=== PATIENT | female | born 1995 | race American Indian/Alaskan Native ===

== ENCOUNTER 2020-10-16 08:58 | Emergency (ER) | payer SELFPAY ==
[2020-10-16 09:39] VITALS: BP 101/46
--- NOTE | 2020-10-16 10:33 | Emergency Department Report ---
ED Back Pain/Injury HPI - General Chief Complaint: Back Pain/Injury Stated Complaint: BACK NECK PAINS Time Seen by Provider: 10/16/20 10:24 Source: patient Limitations: No Limitations - History of Present Illness Initial Comments: Patient is a 24-year-old female presents emergency room with complaints of upper back pain that radiates to her neck that began 2 days ago. She states 2 days ago she was at work and lifting a heavy box when she began to feel the pain. She denies any fall or specific injury. She denies any fever, nausea, vomiting, diarrhea, urinary symptoms, numbness, weakness, bowel or bladder incontinence. No past medical history. No allergies to medications. Last menstrual cycle last month, she denies possibility of . - Related Data Previous Rx's Medication Instructions Recorded Last Taken Type Menthol/Camphor [[place] 1 applicatio TP BID #18 oint...g. 10/16/20 Unknown Rx Ointment] Naproxen [EC-Naprosyn] 500 mg PO BID PRN #14 tablet. 10/16/20 Unknown Rx Allergies Allergy/AdvReac Type Severity Reaction Status Date / Time No Known Allergies Allergy Unverified 10/16/20 09:38 ED Review of Systems ROS: Stated complaint: BACK NECK PAINS Other details as noted in HPI Comment: All other systems reviewed and negative ED Past Medical Hx - Past Medical History Previous Medical History?: No - Surgical History Past Surgical History?: No - Medications Home Medications: Home Medications Medication Instructions Recorded Confirmed Last Taken Type Menthol/Camphor [[place] 1 applicatio TP BID #18 oint...g. 10/16/20 Unknown Rx Ointment] Naproxen [EC-Naprosyn] 500 mg PO BID PRN #14 tablet. 10/16/20 Unknown Rx ED Physical Exam - General Limitations: No Limitations General appearance: alert, in no apparent distress - Head Head exam: Present: atraumatic, normocephalic - Eye Eye exam: Present: normal appearance - ENT ENT exam: Present: mucous membranes moist - Neck Neck exam: Present: normal inspection, full ROM. Absent: tenderness, meningismus - Respiratory Respiratory exam: Present: normal lung sounds bilaterally. Absent: respiratory distress, wheezes, rales, rhonchi, stridor, chest wall tenderness, accessory muscle use, decreased breath sounds, prolonged expiratory - Cardiovascular Cardiovascular Exam: Present: regular rate, normal rhythm, normal heart sounds. Absent: systolic murmur, diastolic murmur, rubs, gallop - Extremities Exam Extremities exam: Present: other (mild bilateral trapezius ttp, no bony ttp of the BUE, no crepitus, no deformity, FROM of the BUE, neurovascularly intact) - Back Exam Back exam: Present: normal inspection, full ROM. Absent: paraspinal tenderness, vertebral tenderness - Neurological Exam Neurological exam: Present: alert, oriented X3, CN II-XII intact, normal gait. Absent: motor sensory deficit - Psychiatric Psychiatric exam: Present: normal affect, normal mood - Skin Skin exam: Present: warm, dry, intact ED Course Vital Signs 10/16/20 09:33 Temperature 98.5 F Pulse Rate 59 L Respiratory 18 Rate Blood Pressure 101/46 O2 Sat by Pulse 98 Oximetry ED Medical Decision Making - Medical Decision Making Patient is a 24-year-old female presents emergency room with complaints of upper back pain that radiates to her neck that began 2 days ago. She states 2 days ago she was at work and lifting a heavy box when she began to feel the pain. She denies any fall or specific injury. She denies any fever, nausea, vomiting, diarrhea, urinary symptoms, numbness, weakness, bowel or bladder incontinence. No past medical history. No allergies to medications. Last menstrual cycle last month, she denies possibility of . Vitals are stable. On exam:mild bilateral trapezius ttp, no bony ttp of the BUE, no crepitus, no deformity, FROM of the BUE, neurovascularly intact, no focal neuro deficits. No midline or paraspinal C-spine, T-spine, L-spine tenderness palpation, no step- offs, no deformities. Nexus criteria negative, C-spine can be cleared clinically. Examination appears most consistent with muscle strain. Patient has had no significant trauma. Patient given prescription for [place] balm ointment and naproxen. Advised patient Please use medication as prescribed. May use ice pack, heating pad, rest, epsom salt bath. Follow-up with a primary care doctor. Return the emergency room for any new or worsening symptoms. Critical care attestation.: If time is entered above; I have spent that time in minutes in the direct care of this critically ill patient, excluding procedure time. ED Disposition Clinical Impression: Trapezius muscle strain Qualifiers: Encounter type: initial encounter Laterality: unspecified laterality Qualified Code(s): S46.819A - Strain of other muscles, fascia and tendons at shoulder and upper arm level, unspecified arm, initial encounter Disposition: TO HOME OR SELFCARE Is pt being admited?: No Does the pt Need Aspirin: No Condition: Stable Instructions: Muscle Strain, [id number] Additional Instructions: Please use medication as prescribed. May use ice pack, heating pad, rest, epsom salt bath. Follow-up with a primary care doctor. Return the emergency room for any new or worsening symptoms. Prescriptions: Naproxen [EC-Naprosyn] 500 mg PO BID PRN #14 tablet.dr PRN Reason: pain Menthol/Camphor [[place] Ointment] 1 applicatio TP BID #18 oint...g. Referrals: AAYUSH LIVINGSTON MD [Staff Physician] - 2-3 Days [facility] [Provider Group] - 2-3 Days Forms: Work/School Release Form(ED) Time of Disposition: 10:32 Print Language: BRITISH
== END 2020-10-16 10:49 | disposition home or self-care (01) ==
LOC: ED 08:58
DX: S46.912A Strain of unspecified muscle, fascia and tendon at shoulder and upper arm level, left arm, initial encounter (principal); S46.911A Strain of unspecified muscle, fascia and tendon at shoulder and upper arm level, right arm, initial encounter; Z79.899 Other long term (current) drug therapy; X50.0XXA Overexertion from strenuous movement or load, initial encounter; Y93.89 Activity, other specified; Y92.89 Other specified places as the place of occurrence of the external cause; Y99.8 Other external cause status
CPT/HCPCS: 99281

== ENCOUNTER 2020-10-30 19:33 | Emergency (ER) | payer SELFPAY ==
--- NOTE | 2020-10-30 23:12 | Emergency Department Report ---
ED ENT HPI - General Chief complaint: Sore Throat Stated complaint: SORE THROAT Time Seen by Provider: 10/30/20 22:33 Source: patient Mode of arrival: Ambulatory Limitations: No Limitations - History of Present Illness MD complaint: sore throat -: Gradual, days(s) (3) Location: throat Severity: moderate Quality: aching, dull Consistency: constant Worsens with: swallowing, eating - Related Data Previous Rx's Medication Instructions Recorded Last Taken Type Menthol/Camphor [[place] 1 applicatio TP BID #18 oint...g. 10/16/20 Unknown Rx Ointment] Naproxen [EC-Naprosyn] 500 mg PO BID PRN #14 tablet. 10/16/20 Unknown Rx Chlorhexidine Mouthwash [Peridex] 15 ml MM BID #1 bottle 10/30/20 Unknown Rx Lidocaine Viscous 2% 5 ml MM Q3H PRN #120 udc 10/30/20 Unknown Rx Allergies Allergy/AdvReac Type Severity Reaction Status Date / Time No Known Allergies Allergy Unverified 10/16/20 09:38 ED Dental HPI - General Chief complaint: Sore Throat Stated complaint: SORE THROAT Time Seen by Provider: 10/30/20 22:33 Source: patient Mode of arrival: Ambulatory Limitations: No Limitations - History of Present Illness Initial comments: 24-year-old asthmatic female with asthma department complaining of a 1 to 2-day history of sore throat which worsens with eating and drinking. No fever, chills, sweats. No dysphagia. No nausea, no vomiting, no hemoptysis no hematemesis hematochezia no abdominal pain no rashes. This patient states that she seeks a work note as well MD complaint: sore throat -: Gradual - Related Data Previous Rx's Medication Instructions Recorded Last Taken Type Menthol/Camphor [[place] 1 applicatio TP BID #18 oint...g. 10/16/20 Unknown Rx Ointment] Naproxen [EC-Naprosyn] 500 mg PO BID PRN #14 tablet. 10/16/20 Unknown Rx Chlorhexidine Mouthwash [Peridex] 15 ml MM BID #1 bottle 10/30/20 Unknown Rx Lidocaine Viscous 2% 5 ml MM Q3H PRN #120 udc 10/30/20 Unknown Rx Allergies Allergy/AdvReac Type Severity Reaction Status Date / Time No Known Allergies Allergy Unverified 10/16/20 09:38 ED Review of Systems ROS: Stated complaint: SORE THROAT Other details as noted in HPI Comment: All other systems reviewed and negative ED Past Medical Hx - Past Medical History Previous Medical History?: No - Surgical History Past Surgical History?: No - Social History Smoking Status: Never Smoker Substance Use Type: None - Medications Home Medications: Home Medications Medication Instructions Recorded Confirmed Last Taken Type Menthol/Camphor [[place] 1 applicatio TP BID #18 oint...g. 10/16/20 Unknown Rx Ointment] Naproxen [EC-Naprosyn] 500 mg PO BID PRN #14 tablet.dr 10/16/20 Unknown Rx Chlorhexidine Mouthwash [Peridex] 15 ml MM BID #1 bottle 10/30/20 Unknown Rx Lidocaine Viscous 2% 5 ml MM Q3H PRN #120 udc 10/30/20 Unknown Rx ED Physical Exam - General Limitations: No Limitations General appearance: alert, in no apparent distress - Head Head exam: Present: atraumatic, normocephalic - Eye Eye exam: Present: normal appearance, EOMI Pupils: Present: normal accommodation - ENT ENT exam: Present: normal exam, mucous membranes moist, TM's normal bilaterally, other (Yes pharynx red with no no exudate no edema. Airway patent no other adenopathy noted. No voice change no drooling) - Neck Neck exam: Present: normal inspection, full ROM - Respiratory Respiratory exam: Present: normal lung sounds bilaterally. Absent: respiratory distress, wheezes, rales, chest wall tenderness, accessory muscle use, decreased breath sounds - Cardiovascular Cardiovascular Exam: Present: regular rate, normal rhythm. Absent: systolic murmur, diastolic murmur, rubs, gallop - GI/Abdominal GI/Abdominal exam: Present: soft, normal bowel sounds - Extremities Exam Extremities exam: Present: normal inspection, normal capillary refill - Back Exam Back exam: Present: normal inspection. Absent: CVA tenderness (R), CVA tenderness (L) - Neurological Exam Neurological exam: Present: alert, oriented X3, CN II-XII intact, normal gait. Absent: motor sensory deficit - Psychiatric Psychiatric exam: Present: normal affect, normal mood - Skin Skin exam: Present: warm, dry, intact, normal color. Absent: rash ED Course Vital Signs 10/30/20 21:50 Temperature 98.6 F Pulse Rate 59 L Respiratory 20 Rate Blood Pressure 111/72 [Right] O2 Sat by Pulse 99 Oximetry ED Medical Decision Making - Medical Decision Making 24-year-old female with no history of any compromised nontoxic appearance patient is euvolemic with no trismus no airway compromise unable to tolerate p.o. given history and examination low suspicion for this presentation being caused by peritonsillar abscess, Carlo, bacterial tracheitis, acute HIV, epiglottitis, retropharyngeal abscess. Critical care attestation.: If time is entered above; I have spent that time in minutes in the direct care of this critically ill patient, excluding procedure time. ED Disposition Clinical Impression: Pharyngitis Disposition: DC-01 TO HOME OR SELFCARE Is pt being admited?: No Does the pt Need Aspirin: No Condition: Stable Instructions: Pharyngitis Referrals: PRIMARY CARE, [Primary Care Provider] - 3-5 Days
== END 2020-10-30 23:28 | disposition home or self-care (01) ==
LOC: ED 19:33

== ENCOUNTER 2021-12-05 14:33 | Emergency (ER) | payer SELFPAY ==
[2021-12-05 16:10] VITALS: BP 99/49
--- NOTE | 2021-12-05 16:33 | Emergency Department Report ---
ED General Adult HPI - General Chief complaint: Vaginal Bleeding Stated complaint: /BLEEDING Time Seen by Provider: 12/05/21 16:07 Source: patient Mode of arrival: Ambulatory Limitations: No Limitations - History of Present Illness Initial comments: Patient presents with complaints of vaginal bleeding today. She states that she had 2 home positive test. Patient unsure of her first day of last menstrual cycle, however states her last day of her last menstrual cycle was 10/23/2021. She states mild abdominal cramping without urinary symptoms or vaginal discharge or dyspareunia. Patient states she passed a mucus-like clot. She is G2, . No past medical history per patient. She states she is otherwise feeling fine Severity scale (0 -10): 3 - Related Data Previous Rx's Medication Instructions Recorded Last Taken Type Menthol/Camphor [[place] 1 applicatio TP BID #18 oint...g. 10/16/20 Unknown Rx Ointment] Naproxen [EC-Naprosyn] 500 mg PO BID PRN #14 tablet. 10/16/20 Unknown Rx Chlorhexidine Mouthwash [Peridex] 15 ml MM BID #1 bottle 10/30/20 Unknown Rx Lidocaine Viscous 2% 5 ml MM Q3H PRN #120 udc 10/30/20 Unknown Rx Allergies Allergy/AdvReac Type Severity Reaction Status Date / Time No Known Allergies Allergy Unverified 10/16/20 09:38 ED Review of Systems ROS: Stated complaint: /BLEEDING Other details as noted in HPI Constitutional: denies: chills, fever Gastrointestinal: abdominal pain. denies: nausea, vomiting, diarrhea, constipation, hematemesis, melena, hematochezia Genitourinary: abnormal menses. denies: frequency, hematuria, discharge, dyspareunia Musculoskeletal: denies: back pain Skin: denies: lesions, change in color Neurological: denies: headache ED Past Medical Hx - Past Medical History Previous Medical History?: No - Surgical History Past Surgical History?: No - Social History Smoking Status: Never Smoker Substance Use Type: None - Medications Home Medications: Home Medications Medication Instructions Recorded Confirmed Last Taken Type Menthol/Camphor [[place] 1 applicatio TP BID #18 oint...g. 10/16/20 Unknown Rx Ointment] Naproxen [EC-Naprosyn] 500 mg PO BID PRN #14 tablet. 10/16/20 Unknown Rx Chlorhexidine Mouthwash [Peridex] 15 ml MM BID #1 bottle 10/30/20 Unknown Rx Lidocaine Viscous 2% 5 ml MM Q3H PRN #120 udc 10/30/20 Unknown Rx ED Physical Exam - General Limitations: No Limitations General appearance: alert, in no apparent distress - Head Head exam: Present: atraumatic, normocephalic - Eye Eye exam: Present: normal appearance. Absent: scleral icterus - Respiratory Respiratory exam: Present: normal lung sounds bilaterally. Absent: respiratory distress - Cardiovascular Cardiovascular Exam: Present: regular rate, normal rhythm - GI/Abdominal GI/Abdominal exam: Present: soft, normal bowel sounds. Absent: distended, tenderness, guarding, rebound, rigid - Neurological Exam Neurological exam: Present: alert, oriented X3 - Psychiatric Psychiatric exam: Present: normal affect, normal mood - Skin Skin exam: Present: warm, dry, intact, normal color. Absent: rash ED Course Vital Signs 12/05/21 16:09 Temperature 98.7 F Pulse Rate 46 L Respiratory 18 Rate Blood Pressure 99/49 [Right] O2 Sat by Pulse 100 Oximetry ED Medical Decision Making - Lab Data Result diagrams: 12/05/21 16:50 12/05/21 16:50 Lab Results 12/05/21 12/05/21 12/05/21 Range/Units 16:50 16:50 16:50 WBC 6.2 (4.5-11.0) K/mm3 RBC 3.82 (3.65-5.03) M/mm3 Hgb 12.6 (10.1-14.3) gm/dl Hct 37.3 (30.3-42.9) % MCV 98 H (79-97) fl MCH 33 H (28-32) pg MCHC 34 (30-34) % RDW 13.8 (13.2-15.2) % Plt Count 265 (140-440) K/mm3 Lymph % (Auto) 37.6 H (13.4-35.0) % [place] % (Auto) 5.9 (0.0-7.3) % Eos % (Auto) 2.3 (0.0-4.3) % Baso % (Auto) 0.9 (0.0-1.8) % Lymph # (Auto) 2.3 (1.2-5.4) K/mm3 [place] # (Auto) 0.4 (0.0-0.8) K/mm3 Eos # (Auto) 0.1 (0.0-0.4) K/mm3 Baso # (Auto) 0.1 (0.0-0.1) K/mm3 Seg Neutrophils % 53.3 (40.0-70.0) % Seg Neutrophils # 3.3 (1.8-7.7) K/mm3 Sodium 140 (137-145) mmol/L Potassium 4.2 (3.6-5.0) mmol/L Chloride 107.5 H (98-107) mmol/L Carbon Dioxide 22 (22-30) mmol/L Anion Gap 15 mmol/L BUN 10 (7-17) mg/dL Creatinine 1.0 (0.6-1.2) mg/dL Estimated GFR > 60 ml/min BUN/Creatinine Ratio 10 % Glucose 85 (65-100) mg/dL Calcium 9.1 (8.4-10.2) mg/dL Total Bilirubin 0.40 (0.1-1.2) mg/dL AST 15 (5-40) units/L ALT 10 (7-56) units/L Alkaline Phosphatase 56 (35-129) units/L Total Protein 7.2 (6.3-8.2) g/dL Albumin 4.4 (3.9-5) g/dL Albumin/Globulin Ratio 1.6 % HCG, Quant 18.75 H (0-4) mIU/mL Blood Type 12/05/21 Range/Units 16:50 WBC (4.5-11.0) K/mm3 RBC (3.65-5.03) M/mm3 Hgb (10.1-14.3) gm/dl Hct (30.3-42.9) % MCV (79-97) fl MCH (28-32) pg MCHC (30-34) % RDW (13.2-15.2) % Plt Count (140-440) K/mm3 Lymph % (Auto) (13.4-35.0) % [place] % (Auto) (0.0-7.3) % Eos % (Auto) (0.0-4.3) % Baso % (Auto) (0.0-1.8) % Lymph # (Auto) (1.2-5.4) K/mm3 [place] # (Auto) (0.0-0.8) K/mm3 Eos # (Auto) (0.0-0.4) K/mm3 Baso # (Auto) (0.0-0.1) K/mm3 Seg Neutrophils % (40.0-70.0) % Seg Neutrophils # (1.8-7.7) K/mm3 Sodium (137-145) mmol/L Potassium (3.6-5.0) mmol/L Chloride (98-107) mmol/L Carbon Dioxide (22-30) mmol/L Anion Gap mmol/L BUN (7-17) mg/dL Creatinine (0.6-1.2) mg/dL Estimated GFR ml/min BUN/Creatinine Ratio % Glucose (65-100) mg/dL Calcium (8.4-10.2) mg/dL Total Bilirubin (0.1-1.2) mg/dL AST (5-40) units/L ALT (7-56) units/L Alkaline Phosphatase (35-129) units/L Total Protein (6.3-8.2) g/dL Albumin (3.9-5) g/dL Albumin/Globulin Ratio % HCG, Quant (0-4) mIU/mL Blood Type A POSITIVE - Radiology Data Radiology results: report reviewed US OB <= 14 WEEKS FETUS US OB TRANSVAGINAL INDICATION / CLINICAL INFORMATION: bleeding in . COMPARISON: None available. FINDINGS: Transabdominal and transvaginal imaging was performed. Uterus measures 7.8 cm in length. Endometrial echo complex is attenuated at 2 mm. No intrauterine gestational sac is seen. Ovaries are unremarkable. No adnexal lesions are seen. No free fluid. IMPRESSION: 1. No sonographic evidence of intrauterine . No adnexal lesions or free fluid. - Medical Decision Making Patient presents with complaints of vaginal bleeding today. She states that she had 2 home positive test. Patient unsure of her first day of last menstrual cycle, however states her last day of her last menstrual cycle was 10/23/2021. She states mild abdominal cramping without urinary symptoms or vaginal discharge or dyspareunia. Patient states she passed a mucus-like clot. She is G2, . No past medical history per patient. She states she is otherwise feeling fine Patient declines UA. Ultrasound is normal. Beta-hCG is 18. Threatened miscarriage versus early . Patient instructed to return to ED in 3 days for repeat beta hCG. She is well-appearing and in no pain or acute distress at this time. Blood pressure repeated and noted to be 110/69. Discussed signs and symptoms that should prompt immediate return to the ED with patient who verbalizes understand Critical care attestation.: If time is entered above; I have spent that time in minutes in the direct care of this critically ill patient, excluding procedure time. ED Disposition Clinical Impression: Vaginal bleeding during , Threatened miscarriage Disposition: HOME / SELF CARE / HOMELESS Is pt being admited?: No Condition: Stable Instructions: Threatened Miscarriage, [id number] Additional Instructions: Return to the emergency department in 3 days on 12/08/2021 for repeat beta hCG level Referrals: [facility] [Provider Group] - 3-5 Days
--- NOTE | 2021-12-05 17:06 | Ultrasound Report ---
US OB <= 14 WEEKS FETUS US OB TRANSVAGINAL INDICATION / CLINICAL INFORMATION: bleeding in . COMPARISON: None available. FINDINGS: Transabdominal and transvaginal imaging was performed. Uterus measures 7.8 cm in length. Endometrial echo complex is attenuated at 2 mm. No intrauterine ges tational sac is seen. Ovaries are unremarkable. No adnexal lesions are seen. No free fluid. IMPRESSION: 1. No sonographic evidence of intrauterine . No adnexal lesions or free fluid. Signer Name: Reece aRmirez MD Signed: 12/05/2021 5:02 PM Workstation Name: [id number]
--- NOTE | 2021-12-05 17:06 | Ultrasound Report ---
US OB <= 14 WEEKS FETUS US OB TRANSVAGINAL INDICATION / CLINICAL INFORMATION: bleeding in . COMPARISON: None available. FINDINGS: Transabdominal and transvaginal imaging was performed. Uterus measures 7.8 cm in length. Endometrial echo complex is attenuated at 2 mm. No intrauterine ges tational sac is seen. Ovaries are unremarkable. No adnexal lesions are seen. No free fluid. IMPRESSION: 1. No sonographic evidence of intrauterine . No adnexal lesions or free fluid. Signer Name: Reece Ramirez MD Signed: 12/05/2021 5:02 PM Workstation Name: [id number]
[2021-12-05 17:34] LABS: Basophils # (Auto) 0.1 K/mm3 (0.0-0.1); Basophils % (Auto) 0.9 % (0.0-1.8); Eosinophils # (Auto) 0.1 K/mm3 (0.0-0.4); Eosinophils % (Auto) 2.3 % (0.0-4.3); Hematocrit 37.3 % (30.3-42.9); Hemoglobin 12.6 gm/dl (10.1-14.3); Lymphocytes # (Auto) 2.3 K/mm3 (1.2-5.4); Lymphocytes % (Auto) 37.6 % (13.4-35.0); Mean Corpuscular HGB Conc 34 % (30-34); Mean Corpuscular Volume 98 fl (79-97); Monocytes # (Auto) 0.4 K/mm3 (0.0-0.8); Monocytes % (Auto) 5.9 % (0.0-7.3); Platelet Count 265 K/mm3 (140-440); Red Blood Count 3.82 M/mm3 (3.65-5.03); Red Cell Distribution Width 13.8 % (13.2-15.2)
[2021-12-05 17:42] LABS: Alanine Aminotransferase 10 units/L (7-56); Albumin 4.4 g/dL (3.9-5); BUN/Creatinine Ratio 10; Blood Urea Nitrogen 10 mg/dL (7-17); Calcium 9.1 mg/dL (8.4-10.2); Hemolysis Index 9
== END 2021-12-06 00:42 | disposition home or self-care (01) ==
LOC: ED 14:33
DX: O20.0 Threatened abortion (principal); Z79.899 Other long term (current) drug therapy; Z3A.01 Less than 8 weeks gestation of pregnancy
CPT/HCPCS: 36415; 76801; 76817; 80053; 84702; 85025; 86900; 86901; 99284

== ENCOUNTER 2021-12-08 14:18 | Emergency (ER) | payer SELFPAY ==
[2021-12-08 14:40] VITALS: BP 105/57
--- NOTE | 2021-12-08 16:25 | Emergency Department Report ---
ED Recheck HPI - General Chief Complaint: Vaginal Bleeding Stated Complaint: BLOOD TEST Time Seen by Provider: 12/08/21 16:24 Source: patient Mode of arrival: Ambulatory Limitations: No Limitations - History of Present Illness Initial Comments: 26 YO COMES TO ER FOR HCG RECHECK SP SUSPECTED MISCARRIAGE MINIMAL VAG BLEEDING Complaint: other Returns Today for: other Context: planned re-check Associated Symptoms: none - Related Data Previous Rx's Medication Instructions Recorded Last Taken Type Menthol/Camphor [[place] 1 applicatio TP BID #18 oint...g. 10/16/20 Unknown Rx Ointment] Naproxen [EC-Naprosyn] 500 mg PO BID PRN #14 tablet. 10/16/20 Unknown Rx Chlorhexidine Mouthwash [Peridex] 15 ml MM BID #1 bottle 10/30/20 Unknown Rx Lidocaine Viscous 2% 5 ml MM Q3H PRN #120 udc 10/30/20 Unknown Rx Allergies Allergy/AdvReac Type Severity Reaction Status Date / Time No Known Allergies Allergy Unverified 10/16/20 09:38 ED Review of Systems ROS: Stated complaint: BLOOD TEST Other details as noted in HPI Comment: All other systems reviewed and negative ED Past Medical Hx - Past Medical History Previous Medical History?: No - Surgical History Past Surgical History?: No - Family History Family history: no significant - Social History Smoking Status: Never Smoker Substance Use Type: None - Medications Home Medications: Home Medications Medication Instructions Recorded Confirmed Last Taken Type Menthol/Camphor [[place] 1 applicatio TP BID #18 oint...g. 10/16/20 Unknown Rx Ointment] Naproxen [EC-Naprosyn] 500 mg PO BID PRN #14 tablet. 10/16/20 Unknown Rx Chlorhexidine Mouthwash [Peridex] 15 ml MM BID #1 bottle 10/30/20 Unknown Rx Lidocaine Viscous 2% 5 ml MM Q3H PRN #120 udc 10/30/20 Unknown Rx ED Physical Exam - General Limitations: No Limitations General appearance: alert, in no apparent distress - Head Head exam: Present: atraumatic, normocephalic - Eye Eye exam: Present: normal appearance - ENT ENT exam: Present: mucous membranes moist - Neck Neck exam: Present: normal inspection - Respiratory Respiratory exam: Present: normal lung sounds bilaterally. Absent: respiratory distress - Cardiovascular Cardiovascular Exam: Present: regular rate, normal rhythm. Absent: systolic murmur, diastolic murmur, rubs, gallop - GI/Abdominal GI/Abdominal exam: Present: soft, normal bowel sounds - Extremities Exam Extremities exam: Present: normal inspection - Back Exam Back exam: Present: normal inspection - Neurological Exam Neurological exam: Present: alert, oriented X3 - Psychiatric Psychiatric exam: Present: normal affect, normal mood - Skin Skin exam: Present: warm, dry, intact, normal color. Absent: rash ED Course Vital Signs 12/08/21 14:35 Pulse Rate 58 L Respiratory 18 Rate Blood Pressure 105/57 [Right] O2 Sat by Pulse 99 Oximetry ED Recheck MDM - Core Measures Measure Exclusions: not indicated - Medical Decision Making Vital Signs 12/08/21 14:35 Pulse Rate 58 L Respiratory 18 Rate Blood Pressure 105/57 [Right] O2 Sat by Pulse 99 Oximetry Lab Results 12/08/21 Range/Units 15:20 HCG, Quant 4.87 H (0-4) mIU/mL HCG DOWNTRENDING VSS NO PAIN NO DISTRESS US NOTED 7/3 DC HOME WITH DC PLAN OF CARE AND OBGYN FOLLOW UP SHE VERBALIZES UNDERSTANDING OF PLAN OF CARE Critical care attestation.: If time is entered above; I have spent that time in minutes in the direct care of this critically ill patient, excluding procedure time. ED Disposition Clinical Impression: Vaginal bleeding during , Threatened miscarriage Disposition: HOME / SELF CARE / HOMELESS Is pt being admited?: No Does the pt Need Aspirin: No Condition: Stable Additional Instructions: SEE OBGYN NEXT WEEK FOR RECHECK REFERRAL BELOW Referrals: CINTHIA VANEGAS MD [Staff Physician] - 3-5 Days Time of Disposition: 16:27
== END 2021-12-08 17:00 | disposition home or self-care (01) ==
LOC: ED 14:18
DX: O20.0 Threatened abortion (principal); Z3A.01 Less than 8 weeks gestation of pregnancy
CPT/HCPCS: 36415; 84702; 99283